=== PATIENT | female | born 1995 | race Caucasian/White ===

== ENCOUNTER 2021-07-25 15:27 | Emergency (ER) | payer OTHER ==
[~2021-07-25] VITALS: Ht 162.6 cm; Wt 81.6 kg
[2021-07-25 15:36] VITALS: BP 133/89
--- NOTE | 2021-07-25 15:41 | NUR ---
PT TO WAIT IN LOBBY
--- NOTE | 2021-07-25 15:43 | NUR ---
Patient being evaluated by DR ALVAREZ at [facility].
--- NOTE | 2021-07-25 15:49 | NUR ---
25 Y FEMALE FROM HOME DUE TO SOB, CHILLS, AND NAUSEA X2 DAYS. PER PT SHE WAS EXPOSED TO COVID POSITIVE PATIENT ON WEDNESDAY. PT CURRENTLY 100% ON RA. BREATH SOUNDS CLEAR AT THIS TIME PMH: ANXIETY, MENTAL RETARDATION NKA
--- NOTE | 2021-07-25 15:52 | NUR ---
KRISSY LEONARDA SWAB COLLECTED AND WALKED OVER TO LAB BY VALERIE OCHOA
[2021-07-25] MEDS ORDERED: ONDA-188 SL (17:04)
[2021-07-25 17:09] VITALS: BP 128/81
--- NOTE | 2021-07-25 17:09 | NUR ---
Patient discharged with v/s stable. Written and verbal after care instructions given FOR COVID 19 and explained. Patient alert, oriented and verbalized understanding of instructions. Ambulatory with by parent. All questions addressed prior to discharge. ID band removed. Patient advised to follow up with PMD. Rx of ZOFRAN given. Patient educated on indication of medication including possible reaction and side effects. Opportunity to ask questions provided and answered.
== END 2021-07-25 17:09 | disposition home or self-care (01) ==
LOC: MED 15:27
DX: R05.9 Cough, unspecified (principal); Z20.822 Contact with and (suspected) exposure to COVID-19; F41.9 Anxiety disorder, unspecified
CPT/HCPCS: 71045; 99284

== ENCOUNTER 2022-02-13 15:53 | Emergency (ER) | payer OTHER ==
[~2022-02-13] VITALS: Ht 162.6 cm; Wt 86.2 kg
[~2022-02-13 15:53] MED LIST: ONDA-188 SL
[2022-02-13 15:56] VITALS: BP 117/76
[2022-02-13] MEDS ORDERED: IBUPROFEN 600 MG TAB PO ONE (16:10)
--- NOTE | 2022-02-13 16:49 | NUR ---
26/F BIB MOM TO ED WITH C/O RIGHT LEG PAIN S/P SLIPPING AND FALLING AT THE ENDOGENX MEET TODAY. DENIES HEAD OR NECK INJURY, DENIES TAKING MEDICATION FOR PAIN PRIOR TO ARRIVAL.
[2022-02-13] MEDS ORDERED: HYDROcodone/APAP 5/325 MG 1 TAB TAB PO SCH (17:10)
[2022-02-13] MEDS ORDERED: ACET-8386 PO ×2 (17:30→17:31)
[2022-02-13] MEDS ORDERED: IBUP-2213 PO (17:30)
--- NOTE | 2022-02-13 17:40 | NUR ---
PER MID LEVEL, KNEE IMMOBILIZER PLACED TO PT R KNEE. PT TOLERATED WELL. + CMS AFTER APPLICATION. PT ALSO GIVEN ONE TO ONE INSTRUCTIONS ON CRUTCHES. PT RETURNED SAFE DEMONSTRATION. CAREGIVER ALSO ADVISED.
--- NOTE | 2022-02-13 17:50 | NUR ---
Patient discharged with v/s stable. Written and verbal after care instructions ABOUT PATELLAR FRACTURE given and explained. Patient alert, oriented and verbalized understanding of instructions. Ambulatory with steady gait. All questions addressed prior to discharge. ID band removed. Patient advised to follow up with PMD. Rx of NORCO 5-325MG AND IBUPROFEN given. Patient educated on indication of medication including possible reaction and side effects. Opportunity to ask questions provided and answered.
== END 2022-02-13 17:50 | disposition home or self-care (01) ==
LOC: MED 15:53
DX: S83.094A Other dislocation of right patella, initial encounter (principal); W18.30XA Fall on same level, unspecified, initial encounter; Y93.89 Activity, other specified; Y92.89 Other specified places as the place of occurrence of the external cause; Y99.8 Other external cause status
CPT/HCPCS: 29505; 73562; 99283

== ENCOUNTER 2023-05-10 14:13 | Emergency (ER) | payer OTHER ==
[~2023-05-10] VITALS: Ht 165.1 cm; Wt 81.6 kg
[~2023-05-10 14:13] MED LIST changes: +ACET-8905 PO; +IBUP-2213 PO
[2023-05-10 14:49] VITALS: BP 122/84; PULSE 88; RESP 18; TEMP 97.1; O2SAT 98
[2023-05-10] MEDS ORDERED: DIPH25TA53 PO (17:04)
[2023-05-10] MEDS ORDERED: LORA10SG1 PO (17:04)
== END 2023-05-10 17:27 | disposition home or self-care (01) ==
LOC: MED 14:13
DX: R21 Rash and other nonspecific skin eruption (principal); R03.0 Elevated blood-pressure reading, without diagnosis of hypertension; Z79.899 Other long term (current) drug therapy; Z79.1 Long term (current) use of non-steroidal anti-inflammatories (NSAID)
CPT/HCPCS: 99281

== ENCOUNTER 2023-11-01 01:52 | Emergency (ER) | payer OTHER ==
[~2023-11-01] VITALS: Ht 157.5 cm; Wt 84.8 kg
[~2023-11-01 01:52] MED LIST changes: +DIPH25TA53 PO; +LORA10SG1 PO
[2023-11-01 02:02] VITALS: BP 110/77; PULSE 105; RESP 18; TEMP 98.5; O2SAT 100
[2023-11-01] MEDS ORDERED: PRED20TA5 PO (03:36)
[2023-11-01] MEDS ORDERED: DIPH25TA53 PO (03:36)
[2023-11-01] MEDS: predniSONE 20 MG TAB PO ONE (04:03)
[2023-11-01] MEDS: diphenhydrAMINE 50 MG/ML VIAL IM ONE (04:03)
== END 2023-11-01 04:01 | disposition home or self-care (01) ==
LOC: MED 01:52
DX: L50.0 Allergic urticaria (principal)
CPT/HCPCS: 96372; 99283; J1200; J7512

== ENCOUNTER 2023-11-02 22:54 | Emergency (ER) | payer OTHER ==
[~2023-11-02] VITALS: Ht 160 cm; Wt 84.4 kg
[~2023-11-02 22:54] MED LIST changes: +PRED20TA5 PO
[2023-11-03] VITALS: BP 113/77; PULSE 90; RESP 17; TEMP 98.2; O2SAT 98
[2023-11-03] MEDS ORDERED: ACETAMINOPHEN EXTRA STRENGTH 500 MG TAB ONE (03:05)
[2023-11-03] MEDS ORDERED: KETOROLAC 60 MG/2 ML VIAL IM ONE (03:05)
[2023-11-03] MEDS: NACL 0.9% 1,000 ML IV ONE (04:03)
[2023-11-03] MEDS: diphenhydrAMINE 50 MG/ML VIAL IVP ONE (04:11)
[2023-11-03 04:47] LABS: POTASSIUM 3.6 mmol/L (3.5-5.1); SODIUM SERUM 141 mmol/L (136-145)
[2023-11-03 04:48] LABS: ANION GAP 10.3 (8-16); CALCIUM 8.7 mg/dL (8.5-10.1); CARBON DIOXIDE 29.3 mmol/L (21-32); CHLORIDE 105 mmol/L (98-107); CREATININE 0.5 mg/dL (0.6-1.3); GFR ARICAN-AMERICAN 189 mL/min (>90); GFR NON ARICAN-AMERICAN 156 mL/min (>90); GLUCOSE 121 mg/dL (74-106); UREA NITROGEN, BLOOD 13 mg/dL (7-18)
[2023-11-03 04:49] LABS: ALANINE AMINOTRANSFERASE 32 U/L (12-78); ALBUMIN 3.7 g/dL (3.4-5.0); ALKALINE PHOSPHATASE 53 U/L (50-136); ASPARTATE AMINOTRANSFERASE 22 U/L (15-37); TOTAL BILIRUBIN 0.2 mg/dL (0.0-1.0); TOTAL PROTEIN, SERUM 7.8 g/dL (6.4-8.2)
[2023-11-03 04:53] LABS: COVID19 ANTIGEN SOFIA FIA NEGATIVE (NEGATIVE); FLU A ANTIGEN negative (NEGATIVE); FLU B ANTIGEN NEGATIVE (NEGATIVE)
[2023-11-03 05:07] LABS: WHITE BLOOD COUNT (AUTO) 9.8 K/uL (4.8-10.8)
[2023-11-03 05:08] LABS: HEMATOCRIT 33.2 % (36-48); HEMOGLOBIN 11.1 g/dL (12.0-16.0); MEAN CORPUSCULAR HEMOGLOBIN 27 pg (27-31); MEAN CORPUSCULAR HGB CONC 33 g/dL (33-37); MEAN CORPUSCULAR VOLUME 79.2 fL (80-94); PLATELET COUNT (AUTO) 352 K/uL (140-450); RED BLOOD CELL COUNT(AUTO) 4.19 MIL/uL (4.20-5.40); RED CELL DISTRIBUTION WIDTH 15.9 % (11.6-13.7)
[2023-11-03 05:09] LABS: BASOPHILS % (AUTO) 1.2 % (0.0-2.0); EOSINOPHILS % (AUTO) 0.4 % (0.0-4.0); LYMPHOCYTES # (AUTO) 1.8 K/uL (2.5-16.5); LYMPHOCYTES % (AUTO) 18.8 % (20.5-51.1); MONOCYTES # (AUTO) 0.7 K/uL (0.8-1.0); NEUTROPHILS # (AUTO) 7.1 K/uL (1.8-7.7); NEUTROPHILS % (AUTO) 72.6 % (42.2-75.2)
[2023-11-03 05:10] LABS: BASOPHILS # (AUTO) 0.1 K/uL (0.00-0.22)
[2023-11-03 06:05] VITALS: BP 96/66; PULSE 85; RESP 16; TEMP 98.2; O2SAT 98
== END 2023-11-03 06:05 | disposition home or self-care (01) ==
LOC: MED 22:54
DX: B34.9 Viral infection, unspecified (principal); Z20.822 Contact with and (suspected) exposure to COVID-19; L50.9 Urticaria, unspecified; R07.89 Other chest pain; J02.9 Acute pharyngitis, unspecified; Z79.899 Other long term (current) drug therapy
CPT/HCPCS: 36415; 71045; 80053; 84484; 85025; 87081; 87426; 87804; 93005; 96361; 96374; 99285; J1200; J7030; J1885